=== PATIENT | female | born 1985 | race Caucasian/White ===

== ENCOUNTER 2017-12-20 11:04 | Emergency (ER) | payer SELFPAY ==
[~2017-12-20] VITALS: Ht 165.1 cm; Wt 111.1 kg
[2017-12-20] MEDS ORDERED: HYDR-2758 PO (11:17)
--- NOTE | 2017-12-20 11:17 | PHYS DOC ---
Adult General Chief Complaint Chief Complaint: FOOT INJURY PAIN HPI HPI 32-year-old female with history of asthma presenting to the emergency department today with pain in her right foot after accidentally dropping a landscaping rock approximately 30 pounds on her right foot. This happened approximately 30 minute pressure arrival. She has swelling and throbbing sensation in her foot that is moderate to severe and worse with ambulation. She denies any other injuries. She is not remember when her tetanus shot was last. Past medical history asthma Surgical history: Right ACL repair Social history denies smoking, drinks occasionally, denies IV drug use, tetanus status unknown Review of systems: Negative for knee pain hip pain chest pain shortness of breath fevers or chills. All other review of systems is negative unless otherwise noted in history of present illness. ED course: 32-year-old female presenting with right foot pain after injuring it by accidentally dropping a landscaping rock on her right foot. On examination the patient has swelling on the dorsum of the right foot. Normal motor and sensory function of the right foot. 2 second cap refill distally. Mild abrasion above the injury. Nontender ankle and knee proximally. Otherwise unremarkable exam. X-rays obtained and neg for fx. Tetanus updated. Oral pain medications administered. The patient was then discharged home in stable condition to follow up with their primary care physician over the next 2-3 days. They were to return if their symptoms worsened or if they were concerned for any reason. [id number] discharge instructions and return precautions were given. Patient' s questions were answered to their satisfaction. Patient is comfortable with plan. Review of Systems Review of Systems SEE ABOVE. Physical Exam Physical Exam SEE ABOVE Constitutional: Well developed, well nourished, no acute distress, non-toxic appearance. [] HENT: Normocephalic, atraumatic, bilateral external ears normal, oropharynx moist, no oral exudates, nose normal. [] Eyes: PERRLA, EOMI, conjunctiva normal, no discharge. [] Neck: Normal range of motion, no tenderness, supple, no stridor. [] Cardiovascular:Heart rate regular rhythm, no murmur [] Lungs & Thorax: Bilateral breath sounds clear to auscultation [] Abdomen: Bowel sounds normal, soft, no tenderness, no masses, no pulsatile masses. [] Skin: Warm, dry, no erythema, no rash. [] Back: No tenderness, no CVA tenderness. [] Extremities: Injury to the right foot, otherwise nontender with normal range of motion of the joints. No other traumatic injuries noted. Neurologic: Alert and oriented X 3, normal motor function, normal sensory function, no focal deficits noted. [] Psychologic: Affect normal, judgement normal, mood normal. [] EKG EKG [] Radiology/Procedures Radiology/Procedures [] Course & Med Decision Making Course & Med Decision Making Pertinent Labs and Imaging studies reviewed. (See chart for details) [] Dragon Disclaimer Dragon Disclaimer This electronic medical record was generated, in whole or in part, using a voice recognition dictation system. Departure Departure: Impression: Primary Impression: Right foot injury Disposition: HOME, SELF-CARE Condition: STABLE Referrals: MARTIN PIERSON (PCP) Patient Instructions: Foot Contusion Additional Instructions: Thank you for allowing us to participate in your care today. Followup with your primary care physician in 3 days if your symptoms do not improve. Call your Primary Doctor tomorrow and inform them of your visit today. If you do not have a primary care provider you can ask for a list of our primary care providers. Return to the emergency department you have any new or concerning findings. This should be evaluated by the primary care physician and any necessary consulting services for continued management within a few days after discharge. Return to emergency room if you have any new or concerning symptoms including but not limited to fever, chills, nausea, vomiting, intractable pain, any new rashes, chest pain, shortness of air, uncontrolled bleeding, difficulty breathing, and/or vision loss. If at any time, you are having difficulty getting into your primary care doctor or a specialist, return to the emergency department. You may have been prescribed medication that can change in your level of thinking and ability to operate machinery. These medications include hydrocodone and Ativan. Also, Benadryl has been known to do this as well. Be sure to check with your pharmacist and ask if the medications you've prescribed can affect your level of consciousness. I recommend not operating heavy machinery or driving while on medication such as these. Scripts Hydrocodone Bit/Acetaminophen (HYDROCODONE-APAP 5-325 ) 1 Each Tablet 1 TAB PO PRN Q6HRS Y for PAIN, #10 TAB 0 Refills Prov: DOROTEO SMITH MD 12/20/17 DOROTEO SMITH MD Dec 20, 2017 11:17
--- NOTE | 2017-12-20 11:36 | RAD ---
Three-view right foot dated 12/20/2017. No comparison available. Clinical data indication: Pain after injury. Rock on foot this morning. FINDINGS: 3 views of right foot show normal bony alignment. No displaced fracture. There is soft tissue swelling of the dorsum of the foot at the level of the MTP joints. No acute osseous or articular abnormality. IMPRESSION: Soft tissue swelling with no underlying acute bony abnormality. Electronically signed by: Kenroy Rossi MD (12/20/2017 11:32 AM) [id number]
[2017-12-20] MEDS ORDERED: HYDROcodone/APAP 5/325MG 1 TAB TABLET PO ONE (12:00)
[2017-12-20] MEDS ORDERED: DIPHTH,PERTUSS(ACELL),TET TOX 0.5 ML DISP.SYRIN. VAX IM ONE (12:00)
[2017-12-20 12:18] VITALS: BP 140/84
== END 2017-12-20 12:18 | disposition home or self-care (01) ==
LOC: ER 11:04
DX: S99.921A Unspecified injury of right foot, initial encounter (principal); W20.8XXA Other cause of strike by thrown, projected or falling object, initial encounter; Y93.89 Activity, other specified; Y99.8 Other external cause status; Y92.89 Other specified places as the place of occurrence of the external cause
CPT/HCPCS: 73630; 90471; 90715; 99284-25

== ENCOUNTER 2018-11-13 13:43 | Emergency (ER) | payer SELFPAY ==
[~2018-11-13] VITALS: Ht 165.1 cm; Wt 133.0 kg
[~2018-11-13 13:43] MED LIST: HYDR-2155 PO
[2018-11-13] MEDS ORDERED: IV NORMAL SALINE 1,000ML 1,000 ML IV SCH (14:17)
--- NOTE | 2018-11-13 14:22 | PHYS DOC ---
Past History Past Medical History: Asthma Past Surgical History: Other Alcohol Use: Occasionally Adult General Chief Complaint Chief Complaint: FLANK PAIN HPI HPI Patient is a 33 year old female who presents with complaining of left flank pain. Patient complaining of sudden onset of left flank pain since this morning as a constant and sharp pain without radiation. Patient rated her pain at 8/10 and complaining of nausea and 2 episodes of vomiting and states she was not able to eat or tolerate eating. Patient states she she had decrease of urine output because she was not able to tolerate oral intake. Patient states she had kidney stones several years ago but does not remember her previous symptom. Patient denies fever and chills and recent dehydration. Patient denies because of not having sexual activity with men. Review of Systems Review of Systems Constitutional: Denies fever or chills [] Eyes: Denies change in visual acuity, redness, or eye pain [] HENT: Denies nasal congestion or sore throat [] Respiratory: Denies cough or shortness of breath [] Cardiovascular: No additional information not addressed in HPI [] GI: Denies abdominal pain, bloody stools or diarrhea ,reports nausea and vomiting [] : Reports flank pain and decrease of urine output, denies dysuria or hematuria [] Musculoskeletal: Denies back pain or joint pain [] Integument: Denies rash or skin lesions [] Neurologic: Denies headache, focal weakness or sensory changes [] Endocrine: Denies polyuria or polydipsia [] All other systems were reviewed and found to be within normal limits, except as documented in this note. Allergies Allergies Allergies Coded Allergies Type Severity Reaction Last Updated Verified No Known Drug Allergies 12/20/17 No Physical Exam Physical Exam Constitutional: Well developed, well nourished, moderate distress, non-toxic appearance, morbidly obese. [] HENT: Normocephalic, atraumatic, oropharynx moist, no oral exudates, nose normal. [] Eyes: PERRLA, EOMI, conjunctiva normal, no discharge. [] Neck: Normal range of motion, no tenderness, supple, no stridor. [] Cardiovascular:Heart rate regular rhythm, no murmur [] Lungs & Thorax: Bilateral breath sounds clear to auscultation [] Abdomen: Bowel sounds normal, soft, no tenderness, no masses, no pulsatile masses. [] Skin: Warm, dry, no erythema, no rash. [] Back: No tenderness, left CVA tenderness. [] Extremities: No tenderness, no cyanosis, no clubbing, ROM intact, no edema. [] Neurologic: Alert and oriented X 3, normal motor function, normal sensory function, no focal deficits noted. [] Psychologic: Affect normal, judgement normal, mood normal. [] EKG EKG [] Radiology/Procedures Radiology/[place] [address] IMAGING REPORT Signed PATIENT: GAIL CULP ACCOUNT: [id number] : 1985 LOCATION: ER AGE: 33 SEX: F EXAM STATUS: REG ER ORD. PHYSICIAN: REYNALDO LERNER MD REASON: left flank pain PROCEDURE: CT ABDOMEN PELVIS WO CONTRAST PQRS Compliance Statement: One or more of the following individualized dose reduction techniques were utilized for this examination: 1. Automated exposure control 2. Adjustment of the mA and/or kV according to patient size 3. Use of iterative reconstruction technique CT ABDOMEN PELVIS WO CONTRAST Clinical Indication: Left flank pain Comparison: None. Technique: Helical CT imaging of the abdomen and pelvis is performed without IV or oral contrast. Findings: Evaluation of solid organs and bowel is limited without oral and IV contrast, decreasing sensitivity for detection of pathology. Mild scarring or atelectasis in the inferior lingula. Cardiac size normal. Liver, gallbladder, spleen, pancreas, adrenal glands, and abdominal aorta caliber are normal. The right kidney is normal. There is a 5 mm nonobstructing calculus in the upper pole of the left kidney. There is a 3 mm calculus in the lower pole. There is mild left perinephric stranding. There is mild left hydroureteronephrosis secondary to a 4 mm distal ureteral calculus just proximal to the ureterovesicular junction, image 145. Stomach unremarkable. No dilated small bowel. There are multiple subcentimeter mesenteric lymph nodes. Mild distal colon diverticulosis. No colon wall thickening is seen. The appendix is normal. There is a partially exophytic subserosal fibroid measuring 2.9 cm arising from the left of midline fundus. Ovaries are relatively symmetric. Uterus is anteverted. Urinary bladder is nearly completely decompressed, limiting evaluation. There is no pelvic free fluid. Bilateral inguinal lymph nodes may be reactive. Bilateral L5 spondylolysis. No L5 spondylolisthesis is seen. There is minimal grade 1 retrolisthesis of L4 on L5. IMPRESSION: 1. Mild left obstructive uropathy secondary to a 4 mm distal ureteral calculus. 2. There are 2 nonobstructing left renal calculi. 3. Mild distal colon diverticulosis without diverticulitis. 4. Subserosal uterine fibroid. Electronically signed by: Ariel Doran MD (11/13/2018 3:12 PM) [id number] DICTATED AND SIGNED BY: ARIEL DORAN MD DATE: 11/13/18 2382 CC: MARTIN PIERSON; REYNALDO LERNER MD ~ Course & Med Decision Making Course & Med Decision Making Pertinent Labs and Imaging studies reviewed. (See chart for details) Evaluation of patient in ER showed 33-year-old female patient with history of kidney stone presented with left flank pain since this morning. Patient had left flank tenderness with hematuria and UA. CT showed 4 mm left ureteral stone. Patient felt better after treatment in ER with IV fluid, probable and Zofran. Patient tolerated oral intake and ambulated without problem. Plan discharge patient home to diagnose of kidney stone. Dragon Disclaimer Dragon Disclaimer This electronic medical record was generated, in whole or in part, using a voice recognition dictation system. Departure Departure: Impression: Primary Impression: Renal colic on left side Additional Impressions: Ureterolithiasis Hematuria Uterine fibroid Nephrolithiasis Diverticulosis Disposition: HOME, SELF-CARE (at 1610) Condition: IMPROVED Referrals: MARTIN PIERSON (PCP) KIT MCKEON MD Patient Instructions: Diet for Kidney Stones, Kidney Stones Additional Instructions: Drink plenty of liquids Follow-up with on-call urology physician in 2 or 3 days Return to ER if not getting better Strain all of your urine Scripts Tamsulosin Hcl (FLOMAX) 0.4 Mg Cap.er.24h 1 CAP PO DAILY for kidney stone, #14 CAP 0 Refills Prov: REYNALDO LERNER MD 11/13/18 Hydrocodone Bit/Acetaminophen (NORCO 5-325 TABLET) 1 Each Tablet 1 TAB PO PRN Q6HRS PRN for PAIN, #14 TAB 0 Refills Prov: REYNALDO LERNER MD 11/13/18 Ondansetron Hcl (ZOFRAN) 4 Mg Tablet 1 TAB PO Q6HRS for nausea and vomiting, #12 TAB Prov: REYNALDO LERNER MD 11/13/18 Ibuprofen (IBUPROFEN) 800 Mg Tablet 1 TAB PO TID for pain, #30 TAB Prov: REYNALDO LERNER MD 11/13/18 Problem Qualifiers REYNALDO LERNER MD Nov 13, 2018 14:22
[2018-11-13] MEDS ORDERED: KETOROLAC 30 MG/ML VIAL. IV ONE (14:30)
[2018-11-13] MEDS ORDERED: ONDANSETRON PF 4 MG/2 ML VIAL. IV ONE (14:30)
[2018-11-13 15:06] LABS: BASO % 0 % (0-3); EOS % 0 % (0-3); HEMATOCRIT 46.5 % (36.0-47.0); HEMOGLOBIN 15.8 g/dL (12.0-15.5); LYMPH # 1.2 x10^3/uL (1.0-4.8); LYMPH % 10 % (24-48); MEAN CORPUSCULAR HEMOGLOBIN 29 pg (25-35); MEAN CORPUSCULAR HGB CONC 34 g/dL (31-37); MEAN CORPUSCULAR VOLUME 86 fL (79-100); MONO # 0.3 x10^3/uL (0.0-1.1); MONO % 3 % (0-9); NEUT # 11.1 x10^3uL (1.8-7.7); NEUT % 88 % (31-73); PLATELET COUNT 249 x10^3/uL (140-400); RED BLOOD COUNT 5.39 x10^6/uL (3.50-5.40); RED CELL DISTRIBUTION WIDTH 13.5 % (11.5-14.5); WHITE BLOOD COUNT 12.7 x10^3/uL (4.0-11.0)
--- NOTE | 2018-11-13 15:15 | RAD ---
PQRS Compliance Statement: One or more of the following individualized dose reduction techniques were utilized for this examination: 1. Automated exposure control 2. Adjustment of the mA and/or kV according to patient size 3. Use of iterative reconstruction technique CT ABDOMEN PELVIS WO CONTRAST Clinical Indication: Left flank pain Comparison: None. Technique: Helical CT imaging of the abdomen and pelvis is performed without IV or oral contrast. Findings: Evaluation of solid organs and bowel is limited without oral and IV contrast, decreasing sensitivity for detection of pathology. Mild scarring or atelectasis in the inferior lingula. Cardiac size normal. Liver, gallbladder, spleen, pancreas, adrenal glands, and abdominal aorta caliber are normal. The right kidney is normal. There is a 5 mm nonobstructing calculus in the upper pole of the left kidney. There is a 3 mm calculus in the lower pole. There is mild left perinephric stranding. There is mild left hydroureteronephrosis secondary to a 4 mm distal ureteral calculus just proximal to the ureterovesicular junction, image 145. Stomach unremarkable. No dilated small bowel. There are multiple subcentimeter mesenteric lymph nodes. Mild distal colon diverticulosis. No colon wall thickening is seen. The appendix is normal. There is a partially exophytic subserosal fibroid measuring 2.9 cm arising from the left of midline fundus. Ovaries are relatively symmetric. Uterus is anteverted. Urinary bladder is nearly completely decompressed, limiting evaluation. There is no pelvic free fluid. Bilateral inguinal lymph nodes may be reactive. Bilateral L5 spondylolysis. No L5 spondylolisthesis is seen. There is minimal grade 1 retrolisthesis of L4 on L5. IMPRESSION: 1. Mild left obstructive uropathy secondary to a 4 mm distal ureteral calculus. 2. There are 2 nonobstructing left renal calculi. 3. Mild distal colon diverticulosis without diverticulitis. 4. Subserosal uterine fibroid. Electronically signed by: Ariel Doran MD (11/13/2018 3:12 PM) [id number]
[2018-11-13 15:17] LABS: CLARITY,URINE CLOUDY; COLOR,URINE YELLOW
[2018-11-13 15:18] LABS: ALBUMIN 4.3 g/dL (3.4-5.0); ALBUMIN/GLOBULIN RATIO 1.3 (1.0-1.7); BACTERIA,URINE FEW /HPF (0-FEW); BILIRUBIN,URINE NEG (NEG); CALCIUM 9.5 mg/dL (8.5-10.1); CREATININE 0.9 mg/dL (0.6-1.0); GFR 71.7; GLUCOSE,URINE NEG (NEG); NITRITE,URINE NEG (NEG); POTASSIUM 3.9 mmol/L (3.5-5.1); RBC,URINE >40 /HPF (0-2); SQUAMOUS EPITHELIAL CELL,UR MOD /LPF; TOTAL BILIRUBIN 0.5 mg/dL (0.2-1.0); TOTAL PROTEIN 7.7 g/dL (6.4-8.2); UROBILINOGEN,URINE 0.2 mg/dL (0.2 mg/dL)
[2018-11-13] MEDS ORDERED: TAMSULOSIN 0.4 MG CAP.ER.24H. PO ONE (15:45)
[2018-11-13 15:53] VITALS: BP 148/93
[2018-11-13] MEDS ORDERED: TAMS0.4C97 PO ×2 (16:12→16:28)
[2018-11-13] MEDS ORDERED: IBUP800T19 PO ×2 (16:12→16:28)
[2018-11-13] MEDS ORDERED: ONDA4TAB7 PO ×2 (16:12→16:28)
[2018-11-13] MEDS ORDERED: HYDR-3165 PO ×2 (16:12→16:28)
== END 2018-11-13 16:30 | disposition home or self-care (01) ==
LOC: ER 13:43
DX: N13.2 Hydronephrosis with renal and ureteral calculous obstruction (principal); R31.9 Hematuria, unspecified; D25.9 Leiomyoma of uterus, unspecified; K57.90 Diverticulosis of intestine, part unspecified, without perforation or abscess without bleeding; J45.909 Unspecified asthma, uncomplicated; R11.2 Nausea with vomiting, unspecified
CPT/HCPCS: 36415; 74176; 80053; 81001; 85025; 96361; 96374; 96375; 99284; J1885; J2405; J7030